=== PATIENT | male | born 1985 | race Caucasian/White ===

== ENCOUNTER 2019-07-15 12:16 | Emergency (ER) | payer OTHER ==
[2019-07-15 12:22] VITALS: BP 149/83
--- NOTE | 2019-07-15 13:04 | Emergency Department Report ---
ED ENT HPI - General Chief complaint: Earache Stated complaint: EAR PAIN Time Seen by Provider: 07/15/19 12:51 Source: patient Mode of arrival: Ambulatory Limitations: No Limitations - History of Present Illness Initial comments: pt is a 34 yo female who presents to the ED with c/o left ear pain that began yesterday. he states that he went to a swimming pool and jumped in and did a adams ball and immediately felt water fill both of his ears. he has associated left ear pain, muffled hearing, and states that occasionally he feels like his balance is off. he denies any fever, drainage from the ear, difficulty walking, numbness, or weakness. no PMHx. no allergies to meds. - Related Data Previous Rx's Medication Instructions Recorded Last Taken Type Ofloxacin 0.3% [Floxin 0.3% Otic] 10 drops DAILY 10 Days #1 bottle 07/15/19 Unknown Rx Allergies Allergy/AdvReac Type Severity Reaction Status Date / Time No Known Allergies Allergy Unverified 07/15/19 12:20 ED Dental HPI - General Chief complaint: Earache Stated complaint: EAR PAIN Time Seen by Provider: 07/15/19 12:51 Source: patient Mode of arrival: Ambulatory Limitations: No Limitations - Related Data Previous Rx's Medication Instructions Recorded Last Taken Type Ofloxacin 0.3% [Floxin 0.3% Otic] 10 drops DAILY 10 Days #1 bottle 07/15/19 Unknown Rx Allergies Allergy/AdvReac Type Severity Reaction Status Date / Time No Known Allergies Allergy Unverified 07/15/19 12:20 ED Review of Systems ROS: Stated complaint: EAR PAIN Other details as noted in HPI Comment: All other systems reviewed and negative ED Past Medical Hx - Past Medical History Previous Medical History?: No - Surgical History Past Surgical History?: No - Social History Smoking Status: Current Every Day Smoker Substance Use Type: None - Medications Home Medications: Home Medications Medication Instructions Recorded Confirmed Last Taken Type Ofloxacin 0.3% [Floxin 0.3% Otic] 10 drops DAILY 10 Days #1 bottle 07/15/19 Unknown Rx ED Physical Exam - General Limitations: No Limitations General appearance: alert, in no apparent distress - Head Head exam: Present: atraumatic, normocephalic - Eye Eye exam: Present: normal appearance - ENT ENT exam: Present: mucous membranes moist, other (right TM and canal are normal, left canal is erythematous with scaling, there is a small left TM perforation, no drainage) - Neurological Exam Neurological exam: Present: alert, oriented X3 - Psychiatric Psychiatric exam: Present: normal affect, normal mood - Skin Skin exam: Present: warm, dry, intact ED Course Vital Signs 07/15/19 12:21 Temperature 98.0 F Pulse Rate 78 Respiratory 20 Rate Blood Pressure 149/83 O2 Sat by Pulse 97 Oximetry ED Medical Decision Making - Medical Decision Making pt is a 34 yo female who presents to the ED with c/o left ear pain that began yesterday. he states that he went to a swimming pool and jumped in and did a adams ball and immediately felt water fill both of his ears. he has associated left ear pain, muffled hearing, and states that occasionally he feels like his balance is off. he denies any fever, drainage from the ear, difficulty walking, numbness, or weakness. no PMHx. no allergies to meds. VSS. on exam: right TM and canal are normal, left canal is erythematous with scaling, there is a small left TM perforation, no drainage. Examination consistent with left otitis media and left TM perforation. Patient given prescription for ofloxacin otic drops. Advised patient please use medication as prescribed. please follow up with an ear, nose, and throat doctor. return to the emergency room for any new or worsening symptoms Critical care attestation.: If time is entered above; I have spent that time in minutes in the direct care of this critically ill patient, excluding procedure time. ED Disposition Clinical Impression: Ear drum perforation Qualifiers: Laterality: left Qualified Code(s): H72.92 - Unspecified perforation of tympanic membrane, left ear Otitis externa Qualifiers: Otitis externa type: swimmer's ear Chronicity: acute Laterality: left Qualified Code(s): H60.332 - Swimmer's ear, left ear Disposition: TO HOME OR SELFCARE Is pt being admited?: No Does the pt Need Aspirin: No Condition: Stable Instructions: Otitis Externa (ED), Ruptured Eardrum (ED) Additional Instructions: please use medication as prescribed. please follow up with an ear, nose, and throat doctor. return to the emergency room for any new or worsening symptoms. Prescriptions: Ofloxacin 0.3% [Floxin 0.3% Otic] 10 drops DAILY 10 Days #1 bottle Referrals: ELVIRA MIRELES MD [Staff Physician] - 2-3 Days JAZZMINE ESTRADA MD [Staff Physician] - 2-3 Days Time of Disposition: 13:02 Print Language: [id number]
== END 2019-07-15 14:43 | disposition home or self-care (01) ==
LOC: ED 12:16
DX: H60.92 Unspecified otitis externa, left ear (principal); H72.92 Unspecified perforation of tympanic membrane, left ear; F17.200 Nicotine dependence, unspecified, uncomplicated; Z79.899 Other long term (current) drug therapy
CPT/HCPCS: 99281